=== PATIENT | male | born 1955 | race Two or more races ===

== ENCOUNTER 2024-02-09 09:26 | Outpatient (REF) | payer MEDICARE, SELFPAY ==
--- NOTE | ~2024-02-09 | XR_ITS ---
EXAMINATION: 1. RADIOGRAPHS CERVICAL SPINE 2. RADIOGRAPHS LUMBAR SPINE CLINICAL INFORMATION: Neck and back pain for one week COMPARISON: None TECHNIQUE: 3 views of the cervical spine and 2 views of the thoracic spine were obtained. FINDINGS: Cervical spine: Normal alignment of the cervical spine. Unremarkable C1/2 articulation. Cervical vertebral body heights are maintained. There is severe narrowing of the C4/5 disc space height with mild narrowing of the C5/6 disc space height and moderate narrowing of the C6/7 disc space height. There are large osteophytes most prominent between C3 and C6. There is no prevertebral soft tissue swelling. Soft tissue calcifications lateral to the cervical spine are likely vascular in nature. Thoracic spine: There is mild dextroscoliosis of the thoracic spine, possibly positional in nature. Thoracic vertebral body heights are maintained. There is mild narrowing of scattered disc spaces throughout the thoracic spine in addition to tiny scattered osteophytes. Visualized lung parenchyma is well aerated. XR/XR thoracic spine 2V IMPRESSION: 1. Moderate diffuse degenerative changes of the cervical spine without compression deformity. 2. Mild diffuse degenerative changes of the thoracic spine without compression deformity.
--- NOTE | ~2024-02-09 | XR_ITS ---
EXAMINATION: 1. RADIOGRAPHS CERVICAL SPINE 2. RADIOGRAPHS LUMBAR SPINE CLINICAL INFORMATION: Neck and back pain for one week COMPARISON: None TECHNIQUE: 3 views of the cervical spine and 2 views of the thoracic spine were obtained. FINDINGS: Cervical spine: Normal alignment of the cervical spine. Unremarkable C1/2 articulation. Cervical vertebral body heights are maintained. There is severe narrowing of the C4/5 disc space height with mild narrowing of the C5/6 disc space height and moderate narrowing of the C6/7 disc space height. There are large osteophytes most prominent between C3 and C6. There is no prevertebral soft tissue swelling. Soft tissue calcifications lateral to the cervical spine are likely vascular in nature. Thoracic spine: There is mild dextroscoliosis of the thoracic spine, possibly positional in nature. Thoracic vertebral body heights are maintained. There is mild narrowing of scattered disc spaces throughout the thoracic spine in addition to tiny scattered osteophytes. Visualized lung parenchyma is well aerated. XR/XR cervical spine 3V IMPRESSION: 1. Moderate diffuse degenerative changes of the cervical spine without compression deformity. 2. Mild diffuse degenerative changes of the thoracic spine without compression deformity.
== END 2024-02-09 09:27 | disposition home or self-care (01) ==
LOC: HO.HHCX 09:26
PROVIDERS: Visit Provider Internal Medicine
DX: M50.320 Other cervical disc degeneration, mid-cervical region, unspecified level (principal); M48.02 Spinal stenosis, cervical region; M51.34 Other intervertebral disc degeneration, thoracic region
CPT/HCPCS: 72040; 72070

== ENCOUNTER 2024-03-08 10:32 | Outpatient (AMB) | payer MEDICARE, SELFPAY ==
--- NOTE | 2024-03-08 10:36 | MHC.OFFVIS ---
Vital Signs 03/08/24 10:37 Height 5 ft 9 in Weight 161 lb BMI 23.8 BP 154/78 H Blood Pressure Location Rt brachial Position Sitting Respiration 14 Pulse 64 Pulse Source Pulse Oximeter Pulse Oximetry (%) 100 Oxygen Delivery Method Room Air Intake Visit Reasons: cervical radiculopathy Allergies No Known Allergies Allergy (Verified 03/08/24 10:38) Medication List - Last Reconciled 03/08/24 by Lala Mccarty LPN acetaminophen ER 650 mg PO Q8H PRN cyclobenzaprine 10 mg PO TID PRN diphenhydramine HCl (Amber-Dryl) 25 mg PO Q6H PRN duloxetine 120 mg PO DAILY olanzapine 20 mg PO ONCE HPI HPI cervical radiculopathy: Details: This is a 69-year-old male presenting with history of neck pain radiating to the right upper back and right axilla and right chest as well as left arm and elbow. The pain is described as a burning sensation associated with pins and needles and it is worse at night and in the morning, when he first wakes up that worsened about one month ago. The pain was up to 8 to 10 out of 10 in intensity. It is now about 3 to 4 out of 10 intensity. He is not taking any medications that interferes with his sleep and his normal daily activities. He has been on permanent disability with history notable for prior kidney cancer with left nephrectomy. He has not tried physical therapy but does do stretching exercises at home. He has not undergone any imaging. There is some note of an EMG study that was done in the past, but I do not have those results available today. Review of Systems Const All systems reviewed & are unremarkable except as noted in HPI and below Physical Exam Vital Signs: Last Vital Signs Pulse 64 03/08/24 10:37 Resp 14 03/08/24 10:37 BP 154/78 H 03/08/24 10:37 Pulse Ox 100 03/08/24 10:37 Oxygen Delivery Method Room Air 03/08/24 10:37 BMI result Body Mass Index 23.8 General: Appears afebrile. Alert and oriented. Mood and affect appropriate. Follows and participates in conversation appropriately. Respiratory effort is unlabored. Able to transition from sit to stand unassisted. Results Reviewed Results Reviewed: 02/09/24: 1. RADIOGRAPHS CERVICAL SPINE 2. RADIOGRAPHS LUMBAR SPINE FINDINGS: Cervical spine: Normal alignment of the cervical spine. Unremarkable C1/2 articulation. Cervical vertebral body heights are maintained. There is severe narrowing of the C4/5 disc space height with mild narrowing of the C5/6 disc space height and moderate narrowing of the C6/7 disc space height. There are large osteophytes most prominent between C3 and C6. There is no prevertebral soft tissue swelling. Soft tissue calcifications lateral to the cervical spine are likely vascular in nature. Thoracic spine: There is mild dextroscoliosis of the thoracic spine, possibly positional in nature. Thoracic vertebral body heights are maintained. There is mild narrowing of scattered disc spaces throughout the thoracic spine in addition to tiny scattered osteophytes. Visualized lung parenchyma is well aerated. IMPRESSION: 1. Moderate diffuse degenerative changes of the cervical spine without compression deformity. 2. Mild diffuse degenerative changes of the thoracic spine without compression deformity. Assessment & Plan Assessment & Plan (1) Cervical radiculopathy: Code(s): M54.12 - Radiculopathy, cervical region Category: Medical Plan Referred for physical therapy. He will return to clinic in two months after a trial of physical therapy and we will assess the need for ordering a cervical spine MRI for consideration of potential cervical steroid injections for pain that is not responsive to physical therapy. Scribed for Dr. Berry by Cecilia Valerio medical operations supervisor, on 03/08/2024. I, Dr. Berry, have personally reviewed and agree with the information entered by the scribe. Orders: Orders PT Evaluation and Treatment 03/08/24 M54.12 - Radiculopathy, cervical region Coding Level of Care Code New Pt Level 3 (84033) Diagnoses Cervical radiculopathy M54.12
[2024-03-08 10:37] VITALS: BP 154/78; PULSE 64; RESP 14; O2SAT 100; BMI 23.8
== END 2024-03-08 11:01 | disposition home or self-care (01) ==
PROVIDERS: PCP Internal Medicine; Visit Provider Internal Medicine
DX: M54.12 Radiculopathy, cervical region (principal)
CPT/HCPCS: 99203

== ENCOUNTER → 2024-03-08 10:32 | Outpatient (BNVA) | payer MEDICARE, MEDICAID, SELFPAY | PROVIDERS: PCP Internal Medicine; Visit Provider Internal Medicine | DX: M54.12 Radiculopathy, cervical region (principal) | CPT/HCPCS: 99202 ==